=== PATIENT | female | born 1995 | race Caucasian/White ===

== ENCOUNTER 2017-05-01 15:48 | Emergency (ER) | payer OTHER ==
[~2017-05-01] VITALS: Ht 180.3 cm; Wt 128.0 kg
[~2017-05-01 15:48] MED LIST: ABIL15TA2 PO; GLUCTAB PO; LAMI25TA3 PO; MACR100C PO
[2017-05-01 15:55] VITALS: BP 130/90; PULSE 90; RESP 16; TEMP 98.5; O2SAT 96
--- NOTE | 2017-05-01 16:14 | PD ---
HPI Chief Complaint: Complaint Time Seen by Provider: 16:04 Travel History International Travel<30 days: No Contact w/Intl Traveler<30days: No Traveled to known affect area: No History of Present Illness HPI This 22-year-old female is referred from urgent care center. She got to the urgent care center because she been feeling lightheaded since around noon today. At the urgent care center they checked her urine and found to be quite dilute. The patient did not feel that she was drinking enough water to have dilute urine so they recommended that she had blood work done she is not having any chest or abdominal pain. She is quite emphatic there is no chance of PFSH Past Medical History ADHD: Yes (ADHD) Bipolar Disorder: Yes Cancer: No Cardiovascular Problems: No Cerebrovascular Accident: No Diabetes: Yes Diminished Hearing: No (Auditory deficit disorder) Endocrine: Yes Gastrointestinal Disorders: No Genitourinary: Yes Headaches: Yes Immune Disorder: No Implanted Vascular Access Dvce: No Musculoskeletal: No Neurologic: No Psychiatric: Yes Reproductive: No Respiratory: No Migraines: No Seizures: No Thyroid Disease: No Ulcer: No ?: Not LMP: 04/15/17 : 0 Para: 0 Miscarriage: 0 : 0 Ovarian Cysts: Yes Past Surgical History Abdominal Surgery: No Appendectomy: No Cardiac Surgery: No Cholecystectomy: No Ear Surgery: No Endocrine Surgery: No Eye Surgery: No Genitourinary Surgery: No Gynecologic Surgery: No Oral Surgery: No Thoracic Surgery: No Other Surgery: No Social History Alcohol Use: No Tobacco Use: No Substance Use: No (PT DENIES) Allergies-Medications (Allergen,Severity, Reaction): Coded Allergies: Lexapro (Verified Allergy, Severe, 05/01/17) Sulfa (Verified Allergy, Severe, 05/01/17) Reported Meds & Prescriptions Reported Meds & Active Scripts Active Abilify 15 mg (Aripiprazole) 15 Mg Tab 15 Mg PO BID Macrobid (Nitrofurantoin Macrocrystals) 100 Mg Cap 100 Mg PO BID Metformin Hcl (Metformin HCl) 500 Mg Tab 1,000 Mg PO BIDPC Lamictal (Lamotrigine) 25 Mg Tab 25 Mg PO DAILY Lamictal (Lamotrigine) 25 Mg Tab 50 Mg PO HS Reported Abilify (Aripiprazole) 15 Mg Tab 15 Mg PO DAILY Review of Systems General / Constitutional: No: Fever, Chills Eyes: No: Diploplia HENT: Positive: Lightheadedness, No: Headaches, Rhinorrhea Cardiovascular: No: Chest Pain or Discomfort, Palpitations Respiratory: No: Cough Gastrointestinal: No: Abdominal Pain Genitourinary: Positive: Frequency Musculoskeletal: No: Myalgias Skin: No Rash Neurologic: Positive: Weakness, No: Syncope Hematologic/Lymphatic: No: Easy Bruising Physical Exam Narrative GENERAL: Well-developed female SKIN: Focused skin assessment warm/dry. HEAD: Atraumatic. Normocephalic. EYES: Pupils equal and round. No scleral icterus. No injection or drainage. ENT: No nasal bleeding or discharge. Mucous membranes pink and moist. NECK: Trachea midline. No JVD. CARDIOVASCULAR: Regular rate and rhythm. No murmur appreciated. RESPIRATORY: No accessory muscle use. Clear to auscultation. Breath sounds equal bilaterally. GASTROINTESTINAL: Abdomen soft, non-tender, nondistended. Hepatic and splenic margins not palpable. MUSCULOSKELETAL: No obvious deformities. No clubbing. No cyanosis. No edema. NEUROLOGICAL: Awake and alert. No obvious cranial nerve deficits. Motor grossly within normal limits. Normal speech. PSYCHIATRIC: Appropriate mood and affect; insight and judgment normal. Data Data Last Documented VS Vital Signs Date Time Temp Pulse Resp B/P Pulse Ox O2 Delivery O2 Flow Rate FiO2 05/01/17 16:21 84 16 119/71 85 16 121/74 96 18 139/73 05/01/17 15:55 98.5 96 Orders Complete Blood Count With Diff (05/01/17 16:10) Basic Metabolic Panel (Bmp) (05/01/17 16:10) Urinalysis - C+S If Indicated (05/01/17 16:10) Orthostatic Vital Signs (05/01/17 16:10) Labs Laboratory Tests Test 05/01/17 05/01/17 16:25 17:04 White Blood Count 11.9 TH/MM3 Red Blood Count 4.62 MIL/MM3 Hemoglobin 13.3 GM/DL Hematocrit 38.7 % Mean Corpuscular Volume 83.7 FL Mean Corpuscular Hemoglobin 28.7 PG Mean Corpuscular Hemoglobin 34.3 % Concent Red Cell Distribution Width 12.2 % Platelet Count 331 TH/MM3 Mean Platelet Volume 7.0 FL Neutrophils (%) (Auto) 61.1 % Lymphocytes (%) (Auto) 30.4 % Monocytes (%) (Auto) 7.4 % Eosinophils (%) (Auto) 0.7 % Basophils (%) (Auto) 0.4 % Neutrophils # (Auto) 7.3 TH/MM3 Lymphocytes # (Auto) 3.6 TH/MM3 Monocytes # (Auto) 0.9 TH/MM3 Eosinophils # (Auto) 0.1 TH/MM3 Basophils # (Auto) 0.0 TH/MM3 CBC Comment DIFF FINAL Differential Comment Sodium Level 141 MEQ/L Potassium Level 4.2 MEQ/L Chloride Level 108 MEQ/L Carbon Dioxide Level 27.6 MEQ/L Anion Gap 5 MEQ/L Blood Urea Nitrogen 10 MG/DL Creatinine 0.83 MG/DL Estimat Glomerular Filtration 86 ML/MIN Rate Random Glucose 85 MG/DL Calcium Level 9.0 MG/DL Urine Color YELLOW Urine Turbidity CLEAR Urine pH 5.5 Urine Specific [place] 1.018 Urine Protein NEG mg/dL Urine Glucose (UA) NEG mg/dL Urine Ketones NEG mg/dL Urine Occult Blood NEG Urine Nitrite NEG Urine Bilirubin NEG Urine Leukocyte Esterase NEG Urine WBC 0-2 /hpf Urine Squamous Epithelial 0-5 /hpf Cells Microscopic Urinalysis Comment CULT NOT INDICATED MDM Medical Decision Making Medical Screen Exam Complete: Yes Emergency Medical Condition: Yes Medical Record Reviewed: Yes Differential Diagnosis Differential includes electrolyte imbalance, UTI, diabetes, Narrative Course She arrives with a note from the urgent care center. They're concerned that she has dilute urine and frequency that concerned that she might have diabetes insipidus. His CBC and 7 are normal. Etiology for her feeling lightheaded is not clear. Her orthostatic vital signs are normal. She is stable for discharge Diagnosis Primary Impression: Frequency of urination Disposition: 01 DISCHARGE HOME Condition: Stable Edwin Beach MD May 01, 2017 16:14
[2017-05-01 16:21] VITALS: BP_SYST 119; BP_SYST 121; BP_SYST 139; BP_DIAS 71; BP_DIAS 73; BP_DIAS 74; RESP 16; RESP 18
[2017-05-01 16:33] LABS: AUTOMATED NEUTROPHIL # 7.3 TH/MM3 (1.8-7.7); BASOPHIL % 0.4 % (0.0-2.0); EOSINOPHIL # 0.1 TH/MM3 (0-0.4); EOSINOPHIL % 0.7 % (0.0-4.0); HEMATOCRIT 38.7 % (35.0-46.0); HEMO FLAGS DIFF FINAL; LYMPH % 30.4 % (9.0-44.0); LYMPHOCYTE # 3.6 TH/MM3 (1.0-4.8); MEAN CELL VOLUME 83.7 FL (80.0-100.0); MEAN CORPUSCULAR HEMOGLOBIN 28.7 PG (27.0-34.0); MEAN CORPUSCULAR HGB CONC 34.3 % (32.0-36.0); MONO % 7.4 % (0.0-8.0); NEUT % 61.1 % (16.0-70.0); PLATELET COUNT 331 TH/MM3 (150-450); RED BLOOD COUNT 4.62 MIL/MM3 (4.00-5.30); RED CELL DISTRIBUTION WIDTH 12.2 % (11.6-17.2); WHITE BLOOD COUNT 11.9 TH/MM3 (4.0-11.0)
[2017-05-01 16:41] LABS: POTASSIUM 4.2 MEQ/L (3.5-5.1)
[2017-05-01 16:45] LABS: BICARBONATE 27.6 MEQ/L (21.0-32.0)
[2017-05-01 17:09] LABS: BLOOD, URINE NEG (NEG); GLUCOSE,URINE NEG (NEG); KETONE, URINE NEG (NEG); NITRITE,URINE NEG (NEG); PH, URINE 5.5 (5.0-8.5)
[2017-05-01 17:18] LABS: URINE COLOR YELLOW (YELLW/STRAW)
[2017-05-01 17:19] LABS: COMMENT (UR) CULT NOT INDICATED; CULTURE IF INDICATED CULT NOT INDICATED; SQUAMOUS EPITHELIAL CELL URINE 0-5 /hpf (0-5); WBC, URINE 0-2 /hpf (0-5)
[2017-05-01 17:55] VITALS: BP 129/73
== END 2017-05-01 17:56 | disposition home or self-care (01) ==
LOC: PHED 15:48
DX: R35.0 Frequency of micturition (principal); R42 Dizziness and giddiness; E11.9 Type 2 diabetes mellitus without complications
CPT/HCPCS: 80048; 81001; 85025; 99283

== ENCOUNTER 2018-02-15 08:55 | Emergency (ER) | payer OTHER ==
[~2018-02-15] VITALS: Ht 180.3 cm; Wt 100.0 kg
[2018-02-15 08:59] VITALS: BP 143/65; PULSE 89; RESP 16; TEMP 98.3; O2SAT 98
[2018-02-15] MEDS ORDERED: METF1000 PO (09:09)
[2018-02-15] MEDS ORDERED: ABIL30TA5 PO (09:09)
[2018-02-15] MEDS ORDERED: ETHI1TAB3 PO (09:09)
[2018-02-15] MEDS ORDERED: LAMO25 PO ×2 (09:09)
[2018-02-15] MEDS ORDERED: PRED20 PO (09:30)
[2018-02-15] MEDS ORDERED: HUMIBIDDM PO (09:30)
--- NOTE | 2018-02-15 09:31 | PD ---
HPI Chief Complaint: ENT Complaint Time Seen by Provider: 09:19 Travel History International Travel<30 days: No Contact w/Intl Traveler<30days: No Traveled to known affect area: No History of Present Illness HPI Patient is a 22-year-old female for the past days gradually worsening she has had cough congestion and gradual loss of her voice. Patient states symptoms are mild, progressive, associated signs symptoms as above, duration as above. Patient states she went to her primary care physicians and was told that she had enlarged but noninflamed tonsils PFSH Past Medical History ADHD: Yes (ADHD) Bipolar Disorder: Yes Cancer: No Cardiovascular Problems: No Cerebrovascular Accident: No Diabetes: Yes Patient Takes Glucophage: Yes Diminished Hearing: No (Auditory deficit disorder) Endocrine: Yes Gastrointestinal Disorders: No Genitourinary: Yes (pcos) Headaches: Yes Immune Disorder: No Implanted Vascular Access Dvce: No Musculoskeletal: No Neurologic: No Psychiatric: Yes Reproductive: Yes (pcos) Respiratory: No Immunizations Current: Yes Migraines: No Seizures: No Thyroid Disease: No Ulcer: No Tetanus Vaccination: > 5 Years Influenza Vaccination: No ?: Not LMP: bcp : 0 Para: 0 Miscarriage: 0 : 0 Ovarian Cysts: Yes Past Surgical History Surgical History: No Previous Surgery Abdominal Surgery: No Appendectomy: No Cardiac Surgery: No Cholecystectomy: No Ear Surgery: No Endocrine Surgery: No Eye Surgery: No Genitourinary Surgery: No Gynecologic Surgery: No Oral Surgery: No Thoracic Surgery: No Other Surgery: No Social History Alcohol Use: No Tobacco Use: No Substance Use: No (PT DENIES) Allergies-Medications (Allergen,Severity, Reaction): Coded Allergies: Sulfa (Sulfonamide Antibiotics) (Unverified Allergy, Severe, 02/15/18) escitalopram (Unverified Allergy, Severe, 02/15/18) Reported Meds & Prescriptions Reported Meds & Active Scripts Active Mucinex DM (Dextromethorphan-Guaifenesin) 30-600 Mg Tab 1 Tab PO BID PRN 10 Days Prednisone 20 Mg Tab 60 Mg PO DAILY 5 Days Reported Renetta (Drospirenone-Ethinyl Estradiol) 3-0.02 Mg Tab 1 Tab PO DAILY Lamictal (Lamotrigine) 25 Mg Tab 50 Mg PO HS Lamictal (Lamotrigine) 25 Mg Tab 25 Mg PO DAILY Metformin (Metformin HCl) 1,000 Mg Tab 1,000 Mg PO BIDPC Abilify (Aripiprazole) 30 Mg Tab 30 Mg PO DAILY Review of Systems Except as stated in HPI: all other systems reviewed are Neg Physical Exam Narrative GENERAL: Well-nourished, well-developed patient. SKIN: Focused skin assessment warm/dry. HEAD: Normocephalic. EYES: No scleral icterus. No injection or drainage. ENT: Tonsils are 3+ but not inflamed, no discharge, mild erythema in the posterior oropharynx no swelling. Uvula midline. TMs clear bilaterally. NECK: Supple, trachea midline. No JVD or lymphadenopathy. CARDIOVASCULAR: Regular rate and rhythm without murmurs, gallops, or rubs. RESPIRATORY: Breath sounds equal bilaterally. No accessory muscle use. GASTROINTESTINAL: Abdomen soft, non-tender, nondistended. MUSCULOSKELETAL: No cyanosis, or edema. BACK: Nontender without obvious deformity. No CVA tenderness. Data Data Last Documented VS Vital Signs Date Time Temp Pulse Resp B/P (MAP) Pulse Ox O2 Delivery O2 Flow Rate FiO2 02/15/18 08:59 98.3 89 16 143/65 (91) 98 Orders Orders Ed Discharge Order (02/15/18 09:31) MDM Medical Decision Making Medical Screen Exam Complete: Yes Emergency Medical Condition: Yes Differential Diagnosis URI, pneumonia highly unlikely, laryngitis Narrative Course Patient room to the emergency department, she appears well in no obvious distress. Highly consistent with a viral laryngitis, discussed symptomatic management and return to ED criteria. No indication for antibiotics at this time. She stable for discharge Diagnosis Primary Impression: Laryngitis Med/Other Pt SpecificInfo: Prescription(s) given Scripts Dextromethorphan-Guaifenesin (Mucinex DM) 30-600 Mg Tab 1 TAB PO BID Y for CHEST CONGESTION AND/OR COUGH for 10 Days, #20 TAB 0 Refills Prov: Eloy Beckford MD 02/15/18 Prednisone (Prednisone) 20 Mg Tab 60 MG PO DAILY for 5 Days, #15 TAB 0 Refills Prov: Eloy Beckford MD 02/15/18 Disposition: 01 DISCHARGE HOME Condition: Stable Eloy Beckford MD Feb 15, 2018 09:30
== END 2018-02-15 09:45 | disposition home or self-care (01) ==
LOC: NEPD 08:55
DX: J04.0 Acute laryngitis (principal)
CPT/HCPCS: 99283